=== PATIENT | male | born 1990 | race Caucasian/White ===

== ENCOUNTER 2016-12-11 01:09 | Emergency (ER) | payer OTHER ==
[~2016-12-11] VITALS: Ht 180.3 cm; Wt 85.0 kg
[2016-12-11 01:11] VITALS: BP 135/71; PULSE 107; RESP 16; TEMP 98; O2SAT 98
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
[2016-12-11] MEDS ORDERED: TETANUS/DIPHTHERIA TOXOID ADULT 0.5 ML VIAL IM ONE (02:00)
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
[2016-12-11] MEDS ORDERED: IBUP800T23 PO (03:20)
[2016-12-11] MEDS ORDERED: CYCL5TAB PO (03:27)
[2016-12-11 03:36] VITALS: BP 156/78
== END 2016-12-11 03:36 | disposition home or self-care (01) ==
LOC: NEPB 01:09
DX: T14.8 Other injury of unspecified body region (principal); S16.1XXA Strain of muscle, fascia and tendon at neck level, initial encounter; R51 Headache; V49.40XA Driver injured in collision with unspecified motor vehicles in traffic accident, initial encounter; Z23 Encounter for immunization
CPT/HCPCS: 70450; 71010; 72125; 73564; 90471; 90714

== ENCOUNTER 2017-12-19 09:04 | Emergency (ER) | payer SELFPAY ==
[~2017-12-19 09:04] MED LIST: CYCL5TAB PO; IBUP1TAB7 PO
[2017-12-19] MEDS ORDERED: HYDR-3580 PO (14:40)
== END 2017-12-19 09:41 | disposition left against medical advice (07) ==
LOC: PHED 09:04
DX: S69.91XA Unspecified injury of right wrist, hand and finger(s), initial encounter (principal)
CPT/HCPCS: 99281

== ENCOUNTER 2017-12-19 10:53 | Emergency (ER) | payer SELFPAY ==
[~2017-12-19] VITALS: Ht 182.9 cm; Wt 113.5 kg
[2017-12-19 11:08] VITALS: BP 126/69; PULSE 89; RESP 18; TEMP 98.9; O2SAT 99
[2017-12-19] MEDS ORDERED: LIDOCAINE HCL 1% PF 30 ML VIAL INFIL ONE (11:15)
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
[2017-12-19 12:31] LABS: AUTOMATED NEUTROPHIL # 6.3 TH/MM3 (1.8-7.7); BASOPHIL # 0.1 TH/MM3 (0-0.2); BASOPHIL % 0.6 % (0.0-2.0); EOSINOPHIL # 0.2 TH/MM3 (0-0.4); HEMATOCRIT 39.7 % (39.0-51.0); HEMOGLOBIN 13.3 GM/DL (13.0-17.0); LYMPH % 19.7 % (9.0-44.0); LYMPHOCYTE # 1.8 TH/MM3 (1.0-4.8); MEAN CELL VOLUME 87.8 FL (80.0-100.0); MEAN CORPUSCULAR HEMOGLOBIN 29.5 PG (27.0-34.0); MEAN CORPUSCULAR HGB CONC 33.6 % (32.0-36.0); MEAN PLATELET VOLUME 8.6 FL (7.0-11.0); MONO % 6.1 % (0.0-8.0); MONOCYTE # 0.5 TH/MM3 (0-0.9); NEUT % 71.6 % (16.0-70.0); PLATELET COUNT 199 TH/MM3 (150-450); RED BLOOD COUNT 4.53 MIL/MM3 (4.50-5.90); RED CELL DISTRIBUTION WIDTH 13.1 % (11.6-17.2); WHITE BLOOD COUNT 8.9 TH/MM3 (4.0-11.0)
[2017-12-19 12:45] LABS: CHLORIDE 108 MEQ/L (98-107); SODIUM (NA) 140 MEQ/L (136-145)
[2017-12-19 12:49] LABS: CALCIUM 8.8 MG/DL (8.5-10.1)
[2017-12-19 12:50] LABS: ALBUMIN 4.1 GM/DL (3.4-5.0); BICARBONATE 26.2 MEQ/L (21.0-32.0); BLOOD UREA NITROGEN 11 MG/DL (7-18); GLUCOSE,RANDOM 93 MG/DL (74-106)
[2017-12-19 12:52] LABS: ALT (GPT) 19 U/L (12-78); AST (GOT) 15 U/L (15-37)
[2017-12-19 12:53] LABS: CREATININE 0.72 MG/DL (0.60-1.30); GLOMERULAR FILTRATION RATE 130 ML/MIN (>89)
[2017-12-19 12:54] LABS: TOTAL BILIRUBIN ADULT 0.4 MG/DL (0.2-1.0); TOTAL PROTEIN 7.3 GM/DL (6.4-8.2)
[2017-12-19 12:55] LABS: ALKALINE PHOSPHATASE 64 U/L (45-117)
[2017-12-19] MEDS ORDERED: DIAZEPAM 5 MG TAB PO ONE (13:15)
[2017-12-19 13:16] VITALS: BP 133/72; PULSE 115; RESP 18; O2SAT 97
[2017-12-19 13:44] LABS: ACETAMINOPHEN LESS THAN 2.0 MCG/ML (10.0-30.0)
[2017-12-19] MEDS ORDERED: HYDR-3580 PO (14:40)
[2017-12-19 15:00] LABS: BILIRUBIN, URINE NEG (NEG); BLOOD, URINE NEG (NEG); GLUCOSE,URINE NEG (NEG); KETONE, URINE NEG (NEG); NITRITE,URINE NEG (NEG); PH, URINE 5.5 (5.0-8.5); URINE COLOR LIGHT-YELLOW (YELLW/STRAW); URINE LEUKOCYTE ESTERASE NEG (NEG)
[2017-12-19] MEDS ORDERED: LORazepam 2 MG TAB PO PRN (20:45)
[2017-12-19] MEDS ORDERED: LORazepam 2 MG/ML VIAL IV PUSH PRN ×4 (20:45)
[2017-12-19] MEDS ORDERED: IBUPROFEN 600 MG TAB PO PRN (20:45)
[2017-12-19] MEDS ORDERED: FLUMAZENIL 0.5 MG/5 ML VIAL IV PUSH PRN (20:45)
[2017-12-19] MEDS ORDERED: ONDANSETRON ODT 4 MG TAB PO PRN (20:45)
[2017-12-19] MEDS ORDERED: LORazepam 1 MG TAB PO PRN (20:45)
[2017-12-19 21:20] VITALS: BP 133/91; PULSE 72; RESP 20; TEMP 97; O2SAT 98
[2017-12-20 06:41] VITALS: BP 118/60; PULSE 55; RESP 18; O2SAT 98
[2017-12-20 08:00] VITALS: BP 132/80; PULSE 80; RESP 16; O2SAT 98
--- NOTE | 2017-12-20 08:18 | PD ---
Physical Exam Time Seen by Provider: 08:[address] Stewart has evaluated the patient, lifted Cordero act and cleared the patient for discharge. Data Data Last Documented VS Vital Signs Date Time Temp Pulse Resp B/P (MAP) Pulse Ox O2 Delivery O2 Flow Rate FiO2 12/20/17 08:00 80 16 132/80 (97) 98 Room Air 12/19/17 21:20 97.0 Orders Orders Finger ([id number]) (12/19/17 11:10) Lidocaine Pf 1% Inj (Xylocaine-Mpf 1% In (12/19/17 11:15) Splint Or Brace Apply/Monitor (12/19/17 11:43) Complete Blood Count With Diff (12/19/17 12:04) Comprehensive Metabolic Panel (12/19/17 12:04) Thyroid Stimulating Hormone (12/19/17 12:04) Urinalysis - C+S If Indicated (12/19/17 12:04) Psych Screen (12/19/17 12:04) Drug Screen, Random Urine (12/19/17 12:04) Alcohol (Ethanol) (12/19/17 12:04) Tylenol (Acetaminophen) (12/19/17 12:04) Finger Splint (12/19/17 ) Diazepam (Valium) (12/19/17 13:15) Restraints Violent (12/19/17 14:30) Diet Regular Basic (12/19/17 Dinner) Alcohol Withdrawal Asmt-Ciwa ONCE (12/19/17 20:41) Ondansetron Odt (Zofran Odt) (12/19/17 20:45) Ibuprofen (Motrin) (12/19/17 20:45) Flumazenil Inj (Romazicon Inj) (12/19/17 20:45) Lorazepam (Ativan) (12/19/17 20:45) Lorazepam Inj (Ativan Inj) (12/19/17 20:45) Lorazepam (Ativan) (12/19/17 20:45) Lorazepam Inj (Ativan Inj) (12/19/17 20:45) Lorazepam Inj (Ativan Inj) (12/19/17 20:45) Lorazepam Inj (Ativan Inj) (12/19/17 20:45) Diet Regular Basic (12/20/17 Breakfast) Labs Laboratory Tests Test 12/19/17 12:25 12/19/17 14:40 White Blood Count 8.9 TH/MM3 Red Blood Count 4.53 MIL/MM3 Hemoglobin 13.3 GM/DL Hematocrit 39.7 % Mean Corpuscular Volume 87.8 FL Mean Corpuscular Hemoglobin 29.5 PG Mean Corpuscular Hemoglobin Concent 33.6 % Red Cell Distribution Width 13.1 % Platelet Count 199 TH/MM3 Mean Platelet Volume 8.6 FL Neutrophils (%) (Auto) 71.6 % Lymphocytes (%) (Auto) 19.7 % Monocytes (%) (Auto) 6.1 % Eosinophils (%) (Auto) 2.0 % Basophils (%) (Auto) 0.6 % Neutrophils # (Auto) 6.3 TH/MM3 Lymphocytes # (Auto) 1.8 TH/MM3 Monocytes # (Auto) 0.5 TH/MM3 Eosinophils # (Auto) 0.2 TH/MM3 Basophils # (Auto) 0.1 TH/MM3 CBC Comment DIFF FINAL Differential Comment Blood Urea Nitrogen 11 MG/DL Random Glucose 93 MG/DL Albumin 4.1 GM/DL Calcium Level 8.8 MG/DL Sodium Level 140 MEQ/L Potassium Level 4.0 MEQ/L Chloride Level 108 MEQ/L Carbon Dioxide Level 26.2 MEQ/L Anion Gap 6 MEQ/L Estimat Glomerular Filtration Rate 130 ML/MIN Thyroid Stimulating Hormone 3rd Gen 2.380 uIU/ML Acetaminophen Level LESS THAN 2.0 MCG/ML Ethyl Alcohol Level LESS THAN 3 MG/DL Urine Color LIGHT-YELLOW Urine Turbidity CLEAR Urine pH 5.5 Urine Specific [place] 1.009 Urine Protein NEG mg/dL Urine Glucose (UA) NEG mg/dL Urine Ketones NEG mg/dL Urine Occult Blood NEG Urine Nitrite NEG Urine Bilirubin NEG Urine Urobilinogen LESS THAN 2.0 MG/DL Urine Leukocyte Esterase NEG Urine RBC 1 /hpf Urine WBC LESS THAN 1 /hpf Microscopic Urinalysis Comment CULT NOT INDICATED Urine Opiates Screen POS Urine Barbiturates Screen NEG Urine Amphetamines Screen NEG Urine Benzodiazepines Screen POS Urine Cocaine Screen NEG Urine Cannabinoids Screen POS MDM Supervised Visit with [facility]: No Narrative Course Dr. Stewart has evaluated the patient, lifted Cordero act and cleared the patient for discharge. Patient contracts safety. Denies suicidal or homicidal ideations. Patient will be provided community resource packet to [facility] for follow-up. Has friends and family for support. Patient was medically cleared by alternate provider prior to psych screening. Patient has been evaluated by psychiatry and and is now cleared for discharge. Diagnosis Primary Impression: Consuelo govea Additional Impressions: Dislocation of right middle finger Polysubstance abuse Referrals: [facility] (Out patient) [facility] Primary Care Physician Psychiatrist [facility] Patient Instructions: Finger Dislocation (ED), General Instructions Additional Instruction: Contract safety to your self and others Stop using drugs Follow-up with psychiatry Follow-up with primary care provider Follow-up with Noel Triplett Return to the emergency department immediately with worsening of symptoms Med/Other Pt SpecificInfo: No Change to Meds, No Meds Exist/No RX given Disposition: 01 DISCHARGE HOME Condition: Stable Xiao Ward Dec 20, 2017 08:18
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
== END 2017-12-20 10:21 | disposition home or self-care (01) ==
LOC: PHED 10:53 → NEPJ 12-20 10:21
DX: S63.252A Unspecified dislocation of right middle finger, initial encounter (principal); F19.10 Other psychoactive substance abuse, uncomplicated; F17.200 Nicotine dependence, unspecified, uncomplicated; F32.9 Major depressive disorder, single episode, unspecified; F41.9 Anxiety disorder, unspecified; X58.XXXA Exposure to other specified factors, initial encounter; Z79.899 Other long term (current) drug therapy
CPT/HCPCS: 64450; 73140; 80053; 80307; 81001; 84443; 85025